=== PATIENT | female | born 1980 | race Caucasian/White ===

== ENCOUNTER 2019-06-18 14:51 | Outpatient (CLI) | payer OTHER, SELFPAY ==
--- NOTE | ~2019-06-18 | MR_ITS ---
EXAMINATION: MR brain/brain stem wo/w con DATE: 06/18/2019 15:59 INDICATION: Anesthesia of skin with tingling to the right side of the face and body. TECHNIQUE: Magnetic resonance imaging (MRI) of the brain and brainstem was performed without and with 20 mL Multihance intravenous contrast. Sequences included sagittal and axial T1-weighted SE, axial d iffusion-weighted FS SE, axial T2*-weighted GRE, axial T2-weighted FLAIR, and axial T2-weighted FSE. Postcontrast axial and coronal T1-weighted SE was obtained. Apparent diffusion coefficient (ADC) maps were created. COMPARISON: None. FINDINGS: Small focus of restricted diffusion with corresponding increased T2 signal in the posterior left lina consistent with acute infarct. No intracranial hemorrhage or abnormal intracranial mass lesion. Ther e are no intraparenchymal signal abnormalities seen on the other pulse sequences. The ventricles are symmetric and normal in size. There are no abnormal extra-axial fluid collections. Flow voids are see n in the cerebral arteries on the T2-weighted sequences consistent with their expected patency. Visua lized orbits and soft tissues are unremarkable. Trace bilateral mastoid effusions. Mild mucosal thick ening in the bilateral ethmoid sinuses. There are no areas of abnormal enhancement on the post contra st images. Patient experienced a mild contrast reaction. I went to evaluate the patient with developed broad reg ion of erythema in the sternal region. No elevated hives. Patient was in no apparent distress and den ied dyspnea or chest pain. No wheezing or swelling of the mucous membranes. Patient was observed in t he department for an additional 15 minutes. Patient was informed that this would constitute a contras t reaction and that when possible gadolinium contrast should be avoided in the future or if required patient should be premedicated. IMPRESSION: 1. Small acute infarct in the posterior left lina. 2. Mild gadolinium contrast reaction. Reviewed, dictated and finalized at location A.
[2019-06-18 15:36] LABS: Estimated Glomerular Filt Rate > 60
== END 2019-06-18 14:52 | disposition home or self-care (01) ==
PROVIDERS: PCP Family Medicine; Visit Provider Physician Assistant Medical
DX: R20.0 Anesthesia of skin (principal); R20.2 Paresthesia of skin; I63.9 Cerebral infarction, unspecified
CPT/HCPCS: 36415; 70553; A9577

== ENCOUNTER 2019-06-18 19:16 | Inpatient (IN) | payer OTHER, SELFPAY ==
--- NOTE | ~2019-06-18 | US_ITS ---
EXAMINATION: US carotid duplex BI DATE: 06/19/2019 10:35 INDICATION: Stroke with disturbance of skin sensation. TECHNIQUE: Grayscale, color Doppler, and pulsed Doppler images of the cervical carotid arteries were obtained. The degree of vessel stenosis is placed in one of the following categories: normal, <50%, 5 0-69%, >=70% but less than near-occlusion, near-occlusion, or total occlusion. Note that percent sten osis relative to normal distal artery lumen diameter is indirectly measured from velocity measurement s as described by Zan, et al. Radiology 2003; 229:340-346. COMPARISON: None. FINDINGS: RIGHT: The right common carotid artery (CCA) peak systolic velocity (PSV) is 89 cm/s. The right internal car otid artery (ICA) PSV is 100 cm/s. The right ICA end-diastolic velocity (EDV) is 23 cm/s. The right I CA/CCA PSV ratio is 1.1. Grayscale and color Doppler images demonstrate no evident stenosis or plaque in the ICA. The external carotid artery (ECA) PSV is 89 cm/s. There is antegrade flow in the right v ertebral artery. LEFT: The left CCA PSV is 95 cm/s. The left ICA PSV is 100 cm/s. The left ICA EDV is 25 cm/s. The left ICA/ CCA PSV ratio is 1.1. Grayscale and color Doppler images of the straight no evident stenosis or plaqu e in the ICA. The ECA PSV is 100 cm/s. There is antegrade flow in the left vertebral artery. IMPRESSION: 1. No evident plaque or stenosis in the right internal carotid artery. 2. No evident plaque or stenosis in the left internal carotid artery. Reviewed, dictated and finalized at location A.
--- NOTE | ~2019-06-18 | CT_ITS ---
EXAMINATION: CTA BRAIN/CAROTID DATE: 06/19/2019 18:03 INDICATION: Small acute infarct in the posterior left lina. TECHNIQUE: Computed tomographic angiography (CTA) of the head and neck was performed with 100 mL Omni paque-350 intravenous contrast. Multiplanar reconstructions and maximum intensity projection 3D-recon structions of the carotid arteries and of the intracranial arteries were created by the technologist on a separate workstation. Precontrast CT of the head was also obtained. Automated exposure control and iterative reconstruction technique were employed.The dose-length product was 1745.27 mGy-cm. COMPARISON: Brain MR dated 06/18/2019 FINDINGS: Carotid arteries: There is 0% stenosis of the right carotid bulb relative to normal distal artery lumen diameter (NASCE T criteria). There is 0% stenosis of the left carotid bulb relative to normal distal artery lumen arti meter. No evident atherosclerotic disease at the aortic arch for the great vessels arising from the a h. Cervical bones and soft tissues are unremarkable. Head: The previous noted small acute infarct in the posterior left lina is indiscernible on the CT images. No acute intracranial hemorrhage, large territorial acute infarction or abnormal extra axial fluid co llection. Ventricles are normal and symmetric. No mass/mass effect. The orbits, paranasal sinuses and mastoid air cells are normal. Intracranial arteries There is no hemodynamically significant stenosis in the vertebral, basilar and internal carotid arter ies. Vertebral arteries are codominant. There are no aneurysms identified. Both A1 and P1 segments a re patent. Cerebral arterial arborization appears symmetric. IMPRESSION: 1. 0% stenosis of the right carotid bulb relative to normal distal artery lumen diameter (NASCET crit eria). 2. 0% stenosis of the left carotid bulb relative to normal distal artery lumen diameter. 3. Normal cerebral angiogram with no evident atherosclerotic disease or aneurysm. 4. No evident acute intracranial process. Small acute infarct in the posterior left lina evident on p rior MRI is indiscernible on the CT images. Reviewed, dictated and finalized at location A. IMPRESSION: 1. 0% stenosis of the right carotid bulb relative to normal distal artery lumen diameter (NASCET criteria). 2. 0% stenosis of the left carotid bulb relative to normal distal artery lumen diameter. 3. Normal cerebral angiogram with no evident atherosclerotic disease or aneurys m. 4. No evident acute intracranial process. Small acute infarct in the posterior left lina evident on prior MRI is indiscernible on the CT images.
[2019-06-18 19:19] VITALS: BP 133/94; PULSE 92; RESP 16; TEMP 37; O2SAT 96
--- NOTE | 2019-06-18 19:26 | ED.GENADULT ---
HPI - General Adult General Chief complaint: Headache Stated complaint: POSS TIA? Time Seen by Provider: 06/18/19 19:29 History of Present Illness HPI narrative: Patient is a 39 y/o female complaining moderate, intermittent right sided tingling sensation for about 1 week. She states that her when it first started, it went away. But her last episode started yesterday morning and has not gone away. There is not alleviating or exacerbating factor. She has some mild subject weakness on right side. However, she is able to use her arms for daily activity and walk without difficulty. She also has a headache. She states that she took Aspirin prior to arrival. She denies any fever, chill, chest pain or SOB. She had an MRI today which showed acute infarct in left posterior lina. Related Data Allergies Allergy/AdvReac Type Severity Reaction Status Date / Time azithromycin Allergy Unknown Unknown Verified 06/18/19 13:30 cephalexin Allergy Unknown Unknown Verified 06/18/19 13:30 ciprofloxacin Allergy Unknown Unknown Verified 06/18/19 13:30 ibuprofen Allergy Unknown Unknown Verified 06/18/19 13:30 levofloxacin Allergy Unknown Unknown Verified 06/18/19 13:30 CEPHALEXIN MONOHYDRATE Allergy Unknown Unknown Uncoded 06/18/19 13:30 CIPROFLOXACIN HCL Allergy Unknown Unknown Uncoded 06/18/19 13:30 Review of Systems Constitutional: Constitutional: Denies chills, Denies fever(s), Denies headache(s) and Denies weakness Eyes: Eyes: Denies blurry vision ENT: Denies headache(s) and Denies neck pain Cardiovascular: Cardiovascular: Denies chest pain and Denies dyspnea Respiratory: Respiratory: Denies cough and Denies dyspnea Gastrointestinal: Gastrointestinal: Denies abdominal pain, Denies diarrhea, Denies nausea and Denies vomiting Genitourinary: Genitourinary: Denies hematuria and Denies dysuria Musculoskeletal: Musculoskeletal: Denies back pain and Denies neck pain Neurologic: Reports headache(s), Reports tingling and Reports weakness PMFSH Social History Social History Smoking status: Never smoker Alcohol intake: current Gender identity (if verbalized by the patient): Female Exam Const: General: no acute distress and well developed Orientation/consciousness: oriented to person, oriented to place, oriented to time and patient oriented x3 HENMT: Head: normocephalic Ears: external ears normal General nose exam: Normal external nose present Eyes: General: appearance normal, both eyes and all related structures Conjunctivae: conjunctivae normal Neck: Neck: normal visual inspection and full ROM Chest: Chest palpation & inspection: normal inspection of the chest and no tenderness Resp: Effort & Inspection: normal respiratory effort Auscultation: clear to auscultation bilaterally Cardio: Rate: regular rate Rhythm: regular rhythm GI: GI Palp: No abdominal tenderness and Yes Soft to palpation Skin: General skin exam: normal color and turgor normal Neuro: General: oriented to person, oriented to place, oriented to time and patient oriented x3 Cranial nerves: Yes CN's II-XII intact bilaterally Cognition (Neuro): normal cognition Speech: normal speech Motor exam (neuro): 5/5 motor strength present throughout Sensory Exam: other (decrased sensation on right side) Coordination: [id number] test normal and [id number] test normal Extrem: General: normal to inspection, full ROM and no pedal edema Psych: Appearance: grossly normal Mental Status: mental status grossly normal Affect: normal affect Course Consultations Consultation #1: Discussed with Dr. Nunn, who agrees to consult and recommends stroke work up. Date: 06/18/19 Time: 20:00 Consultation #2: Discussed Dr. Mata, who agrees to admit. Date: 06/18/19 Time: 20:44 Vital Signs Vital signs: Vital Signs Temperature 37.0 C 06/18/19 19:19 Pulse Rate 92 06/18/19 19:19 Respiratory Rate 16 06/18/19 19:19 Blood Pr
--- NOTE | 2019-06-18 19:27 | ECG_ITS ---
Measurements Intervals [place] Rate: 69 P: 19 NM: 116 QRS: 24 QRSD: 82 T: 15 QT: 380 QTc: 409 Interpretive Statements SINUS RHYTHM WITH SHORT NM INTERVAL LOW QRS VOLTAGE IN PRECORDIAL LEADS BORDERLINE T WAVE ABNORMALITY- INFERIOR LEADS BORDERLINE ECG Electronically Signed On 06-19-2019 7:03:50 CDT by Junior Mandujano D.O.
[2019-06-18 19:40] LABS: Basophils Percent Auto 0.5 % (0.2-1.2); Eosinophils Percent Auto 0.2 % (0-4.4); Hematocrit 41.3 % (37.0-47.0); Hemoglobin 13.7 g/dL (12.0-15.0); Immature Granulocyte Absolute 0.03 K/mm3 (0.00-0.031); Immature Granulocyte Percent A 0.3 % (0-0.5); Lymphocytes Absolute Auto 1.79 K/mm3 (0.9-3.2); Lymphocytes Percent Auto 20.5 % (18.3-44.2); Mean Corpuscular HGB Conc 33.2 g/dl (32-36); Mean Corpuscular Hemoglobin 28.1 pg (26-34); Mean Corpuscular Volume 84.8 fl (80-100); Mean Platelet Volume 11.5 fl (7.4-10.4); Monocytes Absolute Auto 0.3 K/mm3 (0.1-0.6); Monocytes Percent Auto 3.7 % (2.6-8.5); Neutrophils Absolute Auto 6.5 K/mm3 (1.3-6.7); Neutrophils Percent Auto 74.8 % (45.5-73.1); Platelet Count Result 249 k/mm3 (150-375); Red Blood Count 4.87 M/mm3 (4.2-5.4); Red Cell Distribution Width 15.2 % (11.5-14.5); White Blood Count 8.7 K/mm3 (4.5-10.0)
[2019-06-18 19:49] LABS: INR 0.9
[2019-06-18 19:50] LABS: Partial Thromboplastin Time 36.6 SECONDS (22.3-36.8)
[2019-06-18 19:51] LABS: Blood Urea Nitrogen 8 mg/dL (7-17); Calcium 9.4 mg/dL (8.4-10.2); Carbon Dioxide 24 mmol/L (22-30); Chloride 106 mmol/L (98-107); Estimated CRCL calculation 133 ml/min; Estimated Glomerular Filt Rate > 60; Glucose 123 mg/dL (65-105); Potassium 3.6 mmol/L (3.4-5.0); Sodium 139 mmol/L (137-145)
[2019-06-18 20:31] LABS: Add Urine Microscopic? YES; Appearance Urine Clear (Clear); Bacteria Urine Trace /hpf; Bilirubin Urine Negative (Negative); Blood Urine Negative (Negative); Color Urine Yellow (Yellow); Glucose Urine UA Negative (Negative); Ketones Urine Trace mg/dL (Negative); Leukocyte Esterase Ur Negative LEU/UL (Negative); Mucus Urine Rare /lpf; Nitrate Urine Negative (Negative); Protein Urine Negative (Negative); RBC Urine 0-2 /hpf (0-2); Specific Grav Ur 1.016 (1.001-1.035); Squamous Epithelial Cell Urine Rare /hpf (Few); Urobilinogen Urine Negative mg/dL (<2.0); WBC Urine 0-3 /hpf
[2019-06-18 21:10] VITALS: BP 106/79; PULSE 79; RESP 15; TEMP 36.5; O2SAT 98
[2019-06-18 21:55] VITALS: BP 115/71; PULSE 57; RESP 20; TEMP 36.2; O2SAT 98
[2019-06-18 21:56] VITALS: BMI 71.8
[2019-06-18 22:00] VITALS: BP 115/71; PULSE 57; RESP 20; TEMP 36.2; O2SAT 98
[2019-06-18 22:12] VITALS: PULSE 62
[2019-06-19] VITALS (11 sets, daily range): BP systolic 98–118; BP diastolic 54–72; PULSE 54–80; RESP 16–20; TEMP 36.1–36.6; O2SAT 97–100
--- NOTE | 2019-06-19 | ECHO_ITS ---
Patient Info Name: Yue Burger Age: 39 years : 1980 Gender: Female Ht: 69 in Wt: 222 lbs BSA: 2.25 m2 HR: 61 bpm BP: 98 / 56 mmHg Technical Quality: Good Exam Date: 06/19/2019 8:47 AM Exam Location: [facility] Patient Status: Inpatient Admit Date: 06/19/2019 Staff Ordering Physician: Isabel Vasquez MD Process Planner: Dalila Gutiérrez RDCS Attending Provider: Vic Rogers PA-C Referring Physician: Pedro PETERS; Exam Type: CA echo doppler w bubble study Study Info Indications - stroke Complete two-dimensional, color flow and Doppler transthoracic echocardiogram is performed with agitated saline. Contrast/Agitated Saline Contrast/Ag. Saline: Agitated Saline Amount: 30.00 ml Administered By: Eitan Ledezma, RN Summary 1. Left ventricular chamber dimension is normal. 2. Left ventricular systolic function is normal, estimated at 60-65%. 3. The left ventricular diastolic function is normal. 4. E/e' 5 is not elevated. 5. There is trace tricuspid valve regurgitation. 6. No pulmonary hypertension, estimated pulmonary arterial systolic pressure is 28 mmHg. Left Ventricle E/e' 5 is not elevated. Left ventricular chamber dimension is normal. Left ventricular systolic function is normal, estimated at 60-65%. The left ventricular diastolic function is normal. Right Ventricle Right ventricular chamber dimension is normal. Right ventricular systolic function is normal. Left Atria Left atrial chamber dimension is normal. Right Atria Right atrial chamber dimension is normal. Atrial Septum Agitated saline injection opacified right sided cardiac chambers with and without valsalva maneuver and no shunt noted to left cardiac chambers. Intact interatrial septum visualized by color flow and agitated saline imaging. Aortic Valve The aortic valve is trileaflet. There is no aortic valve stenosis. There is no aortic valve regurgitation. Pulmonic Valve There is no pulmonic regurgitation. Mitral Valve There is no mitral valve stenosis. There is no mitral valve regurgitation. Tricuspid Valve There is trace tricuspid valve regurgitation. No pulmonary hypertension, estimated pulmonary arterial systolic pressure is 28 mmHg. Pericardium/Pleural There is no pericardial effusion. Inferior Vena Cava Normal inferior vena cava with >50% collapse upon inspiration consistent with normal right atrial pressure, 5 mmHg. Aorta The aortic root size at the sinus of Valsalva is normal. Left Ventricular Outflow Tract Name Value Normal LVOT 2D LVOT Diameter 2.0 cm LVOT Doppler LVOT Peak Gradient 4 mmHg LVOT Mean Gradient 2 mmHg LVOT VTI 24 cm LVOT VTI/AV VTI Ratio 0.8 LVOT Stroke Volume 78 ml LVOT CO 4.6 l/min LVOT CI 2.1 l/min/m2 Pulmonic Valve
--- NOTE | 2019-06-19 02:34 | PC.NURSE ---
This patient, Yue Burger, was admitted to 2 Medical Room 260-. Patient/family oriented to hospital policies and general routines including ID bracelet, bed and alarms, visiting hours, pain management, procedures, bathroom and other care routines, personal items, smoking policy, room service/diet, and visiting hours. Valuables list has been completed. Information on how to activate the Rapid Response Team has been discussed. Patient/Family are encouraged to report perceived risks to care and to ask questions if they do not understand what they are told or what they should do.
--- NOTE | 2019-06-19 08:14 | PM.IMHP ---
H&P: HPI History of Present Illness Chief complaint: Stroke Narrative: Date and time of patient contact: 06/19/2019 at 3:10 a.m. Yue Burger is a 39 year old female with a past medical history of migraines an allergic rhinitis who presented to the ER after having an outpatient MRI demonstrating an acute stroke. She noticed that a week ago that the right side of her nose was itchy and tingly. She thought that may be due to her allergy nose spray so she quit using it. At the she also noticed that the tips of her fingers on her right hand had the pins and needle sensation like they were waking up after having fallen asleep. She thought that she may have slept wrong on her arm. She also had an intermittent generalized headache at that time that was moderate in intensity. On Tuesday or Tuesday she noticed the sensations in the right part of her nose again and in her right lip. Then on Tuesday she woke up with a right-sided headache similar to her migraines. It was accompanied by paresthesias with numbness and pins and needle sensation and her right hand and wrist as well as arm to a lesser extent and to her right lower leg and foot. She thought that the some of the paresthesias an abnormal sensation could be due to auras from of migraine given the accompanying headaches. However, when she woke up on Tuesday the sensation was similar but seem to completely involved the entire right side of her face and she still had a right-sided headache. She decided to go to her primary care physician at which time an outpatient MRI was ordered. The MRI demonstrated a small acute infarct in the posterior left lina with mild contrast reaction. She was directed to come to the ER for observation overnight. She denies any difficulty eating or drinking. She has not had any slurred speech. She has not noticed difficulty picking up objects. She has not noticed any difficulty with ambulation/tripping or falling. She has not had any visual changes. The neurologist was consulted from the ER and he recommended completing stroke workup. The patient has been admitted as observation on telemetry. Review of Systems Review of Systems: Narrative: 12 systems were reviewed with pertinent positives and negatives per HPI. Except as documented in the HPI, all other systems were reviewed and are negative. [facility] Past Medical History Medical History (Updated 06/19/19 @ 08:35 by Charisma Mata DO) Migraine Seasonal allergies Surgical History Surgical History (Updated 06/19/19 @ 08:34 by Charisma Mata DO) History of section 2006 Family History Family History Mother Thyroid disease Grandparent Hypertension Carcinoma of colon Diabetes mellitus Social History Social History (Updated 06/19/19 @ 08:37 by Charisma Mata DO) Social History: Primary care physician: Dr. Neto Gomez Code status: Full code Smoking status: Never smoker Alcohol intake: never Substance use: never Living arrangements: with family Additional living arrangements comments: She lives at home with her 3 children (16-year-old twins and a 13-year-old) and her mother. She is . Occupation/Education: occupation Additional occupation/education comments: She works as a business relations manager. Gender identity (if verbalized by the patient): Female Spiritual care concerns: No Agree to blood products: Yes Meds Home Medications and Allergies Home Medications Medication Instructions Recorded Confirmed Type aspirin [Adult Low Dose Aspirin] 81 mg PO DAILY 06/19/19 06/19/19 History Allergies Allergy/AdvReac Type Severity Reaction Status Date / Time azithromycin Allergy Unknown Unknown Verified 06/18/19 13:30 cephalexin Allergy Unknown Unknown Verified 06/18/19 13:30 ciprofloxacin Allergy Unknown Unknown Verified 06/18/19 13:30 ibuprofen Allergy Unknown Unknown Veri
[2019-06-19] MEDS: ASPIRIN 325 MG TABLET PO (11:10)
--- NOTE | 2019-06-19 13:25 | CONS_ITS ---
DATE OF CONSULTATION: HISTORY OF PRESENT ILLNESS: A 39-year-old right-handed female has been admitted to [facility] through the emergency room, where she presented with the complaint of having had an outpatient MRI demonstrating an acute stroke. She noted a week ago, the right side of her nose was itchy and tingly. She thought that may be due to her allergy. She also noted the tip of her fingers on the right hand had the pins and needle sensation like they were waking up after having fallen asleep. She might have slept wrong on her arm she initially thought, but she continued to have intermittent generalized headache at that time of moderate intensity. On Tuesday or Tuesday, she noted a sensation in the right part of her nose again and on her right lip. Then on Tuesday, she woke up with the right-sided headache similar to her migraine. It was accompanied by paresthesias, numbness, pins and needles sensation in the right hand as well as arm to lesser extent and also to her right lower extremity. She thought the same paresthesia and abnormal sensation could be due to aura from migraine given the accompanying headache. However, she woke up on Tuesday, with similar sensation involving the entire right side of face and right-sided headache. She decided to go to primary care physician, and at that time, an MRI was ordered. MRI demonstrates small acute infarct in the posterior left lina with mild contrast reaction. She was directed to the ER. She does have ongoing history of seasonal allergies and migraine. In the past, she has undergone and her primary care physician Dr. Neto Gomez. She does not smoke, does not drink. She was taking aspirin 81 mg daily. ALLERGIES: IN ADDITION, SHE IS ALLERGIC TO MULTIPLE MEDICATIONS OUTLINED PARTICULARLY INVOLVING AZITHROMYCIN, CEPHALEXIN, CIPRO, IBUPROFEN, LEVOFLOXACIN. PHYSICAL EXAMINATION: VITAL SIGNS: At the time of evaluation, she was found to be afebrile with pulse of 92, respirations 16, blood pressure 133/94. GENERAL: Examination revealed her to be awake, alert, cooperative, in no obvious acute distress. HEAD: Normocephalic. EAR, NOSE, THROAT: Normal. NECK: Supple. HEART: Regular. LUNGS: Clear. ABDOMEN: Soft. NEUROLOGICAL: Normal mental status. Normal speech. Cranial nerve examination normal. Motor and sensory exam normal. Reflexes symmetrical. Plantars downgoing. LABORATORY DATA: Evaluation up until now included CBC with no leukocytosis. Hemoglobin 13.7, platelet 249. Basic metabolic normal with sodium 139, potassium 3.6, chloride 106, CO2 of 24, BUN 8, creatinine 0.6, glucose 123, calcium 9.4. UA negative. Other investigation up until now includes the echocardiogram which is the left ventricle chamber dimension normal, systolic function normal 60 to 65%, left ventricular diastolic function is normal. Ejection fraction is not elevated. There is trace tricuspid valve regurgitation, but no pulmonary hypertension. The brain MRI revealed a small acute infarct in the posterior left lina with mild gadolinium contrast reaction. IMPRESSION: Very small left pontine stroke in addition to history of the complicated migraine as well. PLAN: To continue the aspirin 81 mg daily and also obtain the CTA because of the posterior fossa structures involvement. DALE OWENS M.D. BRANCH EXAMINER BRANCH EXAMINER D I MT: Eduard
--- NOTE | 2019-06-19 16:33 | PM.IMPN ---
Progress Note: A&P Assessment and Plan (1) Stroke: Qualifiers: CVA mechanism: unspecified Qualified Code(s): I63.9 - Cerebral infarction, unspecified Code(s): I63.9 - Cerebral infarction, unspecified Status: Acute Assessment and Plan: MRI noted to show small acute infarct in posterior left lina. Spoke with Dr. Nunn who recommended CTA of head/neck for further evaluation prior to being discharge. Telemetry showed sinus rhythm, with occasional bradycardia; asymptomatic; no other ectopy. Echo and carotid doppler unremarkable for etiology of findings of stroke Neuro checks per protocol. Continue to monitor on telemetry to rule out cardiac arrhythmia. Neurology has been consulted and their recommendations are appreciated. CTA of head neck has been ordered per Neurology recommendations Full-dose aspirin daily; further changes in medication per Neurology Will check a lipid panel in AM Possible discharge in 1-2 days pending findings of CTA and if okay from Neurology standpoint Subjective Date/time seen: 06/19/19 16:33 Interval history: Patient is a 39 yo F with history of migraines and allergic rhinitis who is here for work up for acute stroke of the lina. Patient states she feels okay today. She has occasional headaches, but have been tolerable. She notes that she still has some numbness/tingling in her right hand, leg, and right side of her face, but otherwise has no other complaints. No facial droop, slurred speech, vision changes, extremity weaknesses. Denies f/c/s, myalgias/arthralgias, dizziness, lightheadedness, changes in v/h, cp/palpitations, sob/cough, n/v/d/c, abd pain, changes in BMs, dysuria, hematuria, cloudy urine, calf pain/swelling. Review of Systems Review of Systems: All systems reviewed & are unremarkable except as noted in HPI and below Exam Narrative: Exam Narrative: Patient lying in semi-davis's position at time of visit. Const: General: cooperative, healthy appearing, comfortable, no acute distress, well developed and alert Nutritional Appearance: well nourished Orientation/consciousness: patient oriented x3 HENMT: Head: normocephalic and atraumatic General nose exam: Normal nares present Face and sinus: face symmetric Mouth: Yes moist mucous membranes Eyes: General: appearance normal, both eyes and all related structures Sclera: sclerae normal Pupils: Equal, round and reactive pupils present EOM: EOMs intact bilaterally Neck: Neck: trachea midline and supple Resp: Effort & Inspection: normal respiratory effort Auscultation: clear to auscultation bilaterally Cardio: Rate: regular rate Rhythm: regular rhythm Heart sounds: no murmurs GI: Inspection: non-distended GI Palp: No abdominal tenderness and Yes Soft to palpation Auscultation: normal bowel sounds and normoactive bowel sounds Skin: General skin exam: normal color and no rashes or lesions noted Neuro: General: patient oriented x3, tone normal, moves all extremities and no focal motor deficits Cranial nerves: Yes facial symmetry Cognition (Neuro): normal cognition Speech: normal speech Motor exam (neuro): 5/5 motor strength present throughout, No tremor noted and abnormal movements noted Coordination: [id number] test normal, [id number] test normal, Normal rapid alternating movements of the distal upper extremity present (Neuro) and Normal rapid alternating movements of the distal lower extremity present (Neuro) Extrem: Right lower extremity: no edema Left lower extremity: no edema Other: NTTP b/l calves Psych: Mental Status: mental status grossly normal Affect: normal affect Objective Data Vital Signs Vital Signs: Last Vital Signs Temp 97.8 F 06/19/19 14:00 Pulse 68 06/19/19 16:00 Resp 16 06/19/19 14:00 BP 106/68 06/19/19 14:00 Pulse Ox 99 06/19/19 14:00 Intake/Output Intake/Output: Intake & Output 06/16/19 06/17/19 06/18/19 0
[2019-06-20] VITALS: PULSE 53
[2019-06-20 02:00] VITALS: BP 95/49; PULSE 57; RESP 20; TEMP 36.1; O2SAT 99
[2019-06-20 04:00] VITALS: PULSE 61
[2019-06-20 05:58] VITALS: BP 108/64; PULSE 63; RESP 20; TEMP 36.1; O2SAT 97
[2019-06-20 06:22] LABS: Cholesterol 179 mg/dL (0-200); HDL Direct 40 mg/dL; Triglycerides 90 mg/dL (<150)
[2019-06-20 06:34] LABS: LDL Cholesterol Direct 114 mg/dL
[2019-06-20 08:00] VITALS: PULSE 58
[2019-06-20] MEDS: ASPIRIN 325 MG TABLET PO (08:07)
--- NOTE | 2019-06-20 09:20 | PM.DS ---
DS: Diagnosis Admitting Diagnosis Admitting Diagnosis: Cerebral infarction, unspecified Discharge Diagnosis (1) Stroke: Qualifiers: CVA mechanism: unspecified Qualified Code(s): I63.9 - Cerebral infarction, unspecified Code(s): I63.9 - Cerebral infarction, unspecified Status: Acute Assessment and Plan: MRI noted to show small acute infarct in posterior left lina. CTA head/neck showed normal cerebral angiogram without acute intracranial process; likely due to size of infarct and increased sensitivity on MRI. Spoke with Dr. Nunn who rec follow up in 6-8 weeks and 81 mg aspirin at discharge. Telemetry showed sinus rhythm, with sinus bradycardia overnight; asymptomatic; no other ectopy. Echo and carotid doppler unremarkable for etiology of findings of stroke. Patient still having tingling in her hands, feet, face, but stable. Lipid panel grossly unremarkable Continue to monitor on telemetry to rule out cardiac arrhythmia. Neurology has been consulted and their recommendations are appreciated. Per Neuro rec, will discharge on 81 mg aspirin in 6-8 weeks. Rec no driving until follow up with Neurology DS: Summary Hospital Course Reason for hospitalization: Acute, small CVA of left lina Hospital Course: Patient is a 39 yo F with history of migraines an allergic rhinitis who presented to the ER on 06/17 after having an outpatient MRI demonstrating an acute stroke. Patient noticed 1 week prior, patient had right sided itchiness and tingling in nose, then to her tips of her fingers of right had, then had generalized, intermittent headache. The sensations in her face and hand became more intermittent over the following week. This then evolved into entire right side of face and right sided headache. She presented to her PCP who ordered a MRI of the brain which demonstrated a small acute infarct in posterior left lina. She was subsequently directed to the ER for observation and further imaging. She had no other associated symptoms other than headaches and tingling. Please see H&P for further details Presenting VS: Temp Pulse Resp BP Pulse Ox 98.6 F 92 16 133/94 H 96 RA 06/18/19 19:19 06/18/19 19:19 06/18/19 19:19 06/18/19 19:19 06/18/19 19:19 Presenting Pertinent labs: HDL 40, LDL 114, cholesterol 179, triglycerides 90. CBC, chemistry, UA otherwise unremarkable Micro: none Imaging: MRI brain 06/17 IMPRESSION: 1. Small acute infarct in the posterior left lina. 2. Mild gadolinium contrast reaction. Carotid Doppler Study 06/19/19 10:40 IMPRESSION: 1. No evident plaque or stenosis in the right internal carotid artery. 2. No evident plaque or stenosis in the left internal carotid artery. Echo 06/18 Summary 1. Left ventricular chamber dimension is normal. 2. Left ventricular systolic function is normal, estimated at 60-65%. 3. The left ventricular diastolic function is normal. 4. E/e' 5 is not elevated. 5. There is trace tricuspid valve regurgitation. 6. No pulmonary hypertension, estimated pulmonary arterial systolic pressure is 28 mmHg. Head/Neck CTA 06/20/19 07:41 IMPRESSION: 1. 0% stenosis of the right carotid bulb relative to normal distal artery lumen diameter (NASCET criteria). 2. 0% stenosis of the left carotid bulb relative to normal distal artery lumen diameter. 3. Normal cerebral angiogram with no evident atherosclerotic disease or aneurysm. 4. No evident acute intracranial process. Small acute infarct in the posterior left lina evident on prior MRI is indiscernible on the CT images ECG: Interpretive Statements SINUS RHYTHM WITH SHORT ME INTERVAL LOW QRS VOLTAGE IN PRECORDIAL LEADS BORDERLINE T WAVE ABNORMALITY- INFERIOR LEADS BORDERLINE ECG Patient was admitted to the hospitalist service for further evaluation for CVA; Dr. Nunn (Neurology) was consulted for further input. During stay patient remained stable and exam was grossly unremarkable. Neuro
== END 2019-06-20 13:00 | disposition home or self-care (01) | DRG 66 ==
LOC: ANHED 21:12 → ANH2MED 21:21
PROVIDERS: Physician Assistant; Admitting Provider Internal Medicine; Emergency Provider Emergency Medicine; PCP Family Medicine; Visit Provider Hospitalist
DX: I63.9 Cerebral infarction, unspecified (principal); R20.2 Paresthesia of skin; R51 Headache; R29.701 NIHSS score 1; J30.9 Allergic rhinitis, unspecified; Z79.82 Long term (current) use of aspirin
CPT/HCPCS: 36415; 70496; 70498; 80048; 80061; 81001; 81025; 85025; 85610; 85730; 93005; 93306; 93880; 96375; 99285; A9270; G0378; Q9967